=== PATIENT | female | born 1970 | race Caucasian/White ===

== ENCOUNTER 2023-03-24 21:11 | Outpatient (REF) | payer BC, SELFPAY ==
[2023-03-29 12:08] LABS: Age Gdln ACOG Testing Note (.); HPV Aptima Negative (Negative); IGP, Aptima HPV, rfx 16/18,45 Note (.)
== END 2023-03-24 21:12 | disposition home or self-care (01) ==
LOC: LAB 21:11
PROVIDERS: Visit Provider Obstetrics & Gynecology
DX: Z12.4 Encounter for screening for malignant neoplasm of cervix (principal)
CPT/HCPCS: G0145

== ENCOUNTER 2023-09-21 08:47 | Outpatient (OUT) | payer BC, SELFPAY ==
--- NOTE | 2023-09-21 | XR_ITS ---
[address] [address] Patient Name: DONNA SANDVOAL MRN: [id number] date: 1970 Sex: F Assigned Patient Location: Current Patient Location: Accession/Order Number: [id number] Exam Date: 09/21/2023 08:55 Report Date: 09/22/2023 07:27 At the request of: KHADIJAH ESCAMILLA Procedure: XR foot RT min 3V PROCEDURE: XR foot RT min 3V COMPARISON: None. HISTORY: RIGHT FOOT PAIN FINDINGS: BONES:No acute fracture or dislocation. Bulky enthesopathic spurring of the calcaneus at the Achilles and plantar insertions SOFT TISSUES:Negative. No visible soft tissue swelling. EFFUSION:None visible. OTHER: Negative. XR/XR foot RT min 3V IMPRESSION: Moderate enthesopathic spurring of the calcaneus Electronically authenticated by: EUGENIO SHANNON Date: 09/22/2023 07:27
== END 2023-09-21 08:48 | disposition home or self-care (01) ==
LOC: EC 08:47
PROVIDERS: Visit Provider Podiatrist Foot & Ankle Surgery
DX: M79.671 Pain in right foot (principal); M77.31 Calcaneal spur, right foot
CPT/HCPCS: 73630

== ENCOUNTER 2024-04-03 21:19 | Outpatient (REF) | payer BC, SELFPAY | END 2024-04-03 21:20 | disposition home or self-care (01) | LOC: LAB 21:19 | PROVIDERS: Visit Provider Physician Assistant | DX: Z01.419 Encounter for gynecological examination (general) (routine) without abnormal findings (principal) | CPT/HCPCS: 87624; 88175 ==